=== PATIENT | female | born 1930 | race Caucasian/White ===

== ENCOUNTER 2017-09-13 01:28 | Emergency (ER) | payer MEDICARE, MEDICAID ==
[~2017-09-13] VITALS: Ht 152.4 cm; Wt 64.0 kg
[~2017-09-13 01:28] MED LIST: AMLO10TA80 PO; ASPI-986 PO; CLOP75TA16 PO; ENAL10TA PO; GEMF600T3 PO; LEVO500T2 PO; LEVO50TA8 PO; MULT1TAB63 PO; OMEP20CA10 PO; RANO500T3 PO; ROSU10TA PO
[2017-09-13] MEDS ORDERED: KETOROLAC 30MG/ML VIAL IV STA (03:51)
[2017-09-13 04:23] LABS: BASOPHILS % 0.7 % (0.0-2.0); EOSINOPHILS % 1.7 % (0.0-5.0); HEMATOCRIT. 36.1 % (36.0-48.0); LYMPHOCYTES % 35.7 % (20.0-50.0); MEAN CORPUSCULAR HEMOGLOBIN 30.3 pg (28.0-32.0); MEAN CORPUSCULAR VOLUME 91.6 fL (81.0-99.0); MEAN PLATELET VOLUME 7.7 fl (7.4-10.4); MONOCYTES % 7.4 % (2.0-8.0); NEUTROPHILS % 54.5 % (40.0-76.0); PLATELET 185 x1000/uL (130-400); RED BLOOD CELL COUNT 3.95 mill/uL (4.2-5.4); RED CELL DISTRIBUTION WIDTH 15.5 % (11.6-14.6)
[2017-09-13 04:33] LABS: CARBON DIOXIDE 27 mEq/L (21-32); CHLORIDE 101 mEq/L (98-107)
[2017-09-13 06:25] VITALS: BP 129/70
== END 2017-09-13 06:30 | disposition home or self-care (01) ==
LOC: ER 01:28
DX: M79.601 Pain in right arm (principal); E03.9 Hypothyroidism, unspecified; I10 Essential (primary) hypertension; E78.00 Pure hypercholesterolemia, unspecified; M19.90 Unspecified osteoarthritis, unspecified site; Z79.82 Long term (current) use of aspirin; Z95.1 Presence of aortocoronary bypass graft; Z79.899 Other long term (current) drug therapy
CPT/HCPCS: 36415; 73070; 80048; 85025; 96374; 99285; J1885

== ENCOUNTER 2017-11-24 09:16 | Inpatient (IN) | payer MEDICARE, MEDICAID ==
[~2017-11-24] VITALS: Ht 152.4 cm; Wt 51.8 kg
[2017-11-24] MEDS ORDERED: ONDANSETRON HCL 4MG/2ML VIAL IV STA (10:02)
[2017-11-24] MEDS ORDERED: IPRATROPIUM/ALBUTEROL 0.5-3(2.5)MG/3ML NEB HHN ONE (10:15)
[2017-11-24 10:33] LABS: BASOPHILS % 0.2 % (0.0-2.0); EOSINOPHILS % 0.5 % (0.0-5.0); HEMATOCRIT. 33.8 % (36.0-48.0); HEMOGLOBIN. 11.4 g/dL (12.0-16.0); LYMPHOCYTES % 9.9 % (20.0-50.0); MEAN CORPUSCULAR HEMOGLOBIN 30.3 pg (28.0-32.0); MEAN CORPUSCULAR VOLUME 89.6 fL (81.0-99.0); MEAN PLATELET VOLUME 7.1 fl (7.4-10.4); MONOCYTES % 3.2 % (2.0-8.0); NEUTROPHILS % 86.2 % (40.0-76.0); PLATELET 274 x1000/uL (130-400); RED BLOOD CELL COUNT 3.77 mill/uL (4.2-5.4); RED CELL DISTRIBUTION WIDTH 15.4 % (11.6-14.6)
[2017-11-24 10:35] LABS: BG BASE EXCESS -1.3 mmol/L (-2.0-2.0); BG CARBOXYHEMOGLOBIN 0.3 % (0.5-1.5); BG DEOXYHEMOGLOBIN 7.1 % (0.0-5.0); BG HCO3 ACT 21.4 mmol/L (22.0-26.0); BG OXYGEN SATURATION 92.9 % (92.0-98.5); BG OXYHEMOGLOBIN 92.6 % (94.0-97.0); BG PCO2 29.7 mmHg (35.0-45.0); BG PH 7.476 (7.350-7.450); BG PO2 60.7 mmHg (75.0-100.0); BG SAMPLE SITE LEFT RADIAL; BG TOTAL HEMOGLOBIN 11.7 g/dL (12.0-18.0); BG VENT MODE ROOM AIR
[2017-11-24 10:41] LABS: INR 1.1; PARTIAL THROMBOPLASTIN TIME 31.2 sec (23.4-31.0); PROTHROMBIN TIME 11.5 sec (9.4-11.6)
[2017-11-24 10:52] LABS: CHLORIDE 96 mEq/L (98-107); CREATINE KINASE 36 IU/L (26-192); TROPONIN I < 0.02 ng/mL (0.00-0.04)
[2017-11-24] MEDS ORDERED: CEFTRIAXONE 1 G PREMIX 50 ML IV ONE (13:15)
[2017-11-24] MEDS ORDERED: AZITHROMYCIN 500 MG in DEXT 5% WATER 250 ML IV SCH (13:15)
[2017-11-24] MEDS ORDERED: ONDANSETRON HCL 4MG/2ML VIAL IV PRN (16:15)
[2017-11-24] MEDS ORDERED: CLONIDINE 0.1MG TABLET PO PRN (16:15)
[2017-11-24] MEDS ORDERED: IPRATROPIUM/ALBUTEROL 0.5-3(2.5)MG/3ML NEB INH PRN (16:15)
[2017-11-24] MEDS ORDERED: LORAZEPAM 2MG/ML CPJ IV PRN (16:15)
[2017-11-24] MEDS ORDERED: MAGNESIUM/ALUMINUM HYDROXIDE/SIMETHICONE 30ML UDC PO PRN (16:15)
[2017-11-24] MEDS ORDERED: ACETAMINOPHEN 325MG TABLET PO PRN (16:15)
[2017-11-24] MEDS ORDERED: HYDROMORPHONE HCL/PF 2MG/ML CPJ IV PRN (17:00)
[2017-11-24 20:00] VITALS: BP 120/67
[2017-11-24 21:00] VITALS: BP 120/67
[2017-11-24] MEDS: ENOXAPARIN 30MG/0.3ML SYR SUBCUT SCH (21:54)
[2017-11-24] MEDS ORDERED: MECL-109 PO (22:20)
[2017-11-24] MEDS ORDERED: ASPI-1159 PO (22:20)
[2017-11-24] MEDS ORDERED: NITR0.4T49 SL (22:23)
[2017-11-24] MEDS ORDERED: AMLO10TA80 PO (22:26)
[2017-11-24] MEDS: GUAIFENESIN/CODEINE 100-10MG/5ML UDC PO PRN (22:49)
[2017-11-24] MEDS: SODIUM CHLORIDE 0.9% 1,000 ML IV SCH (22:49)
[2017-11-24 22:55] LABS: CLARITY URINE CLEAR (CLEAR); COLOR URINE YELLOW (YELLOW); KETONES URINE NEGATIVE (NEGATIVE); LEUKOCYTE ESTERASE URINE 2+ (NEGATIVE); NITRITE URINE POSITIVE (NEGATIVE); OCCULT BLOOD URINE NEGATIVE (NEGATIVE); PH URINE 6.5 (4.5-8.0); PROTEIN URINE NEGATIVE (NEGATIVE); SPECIFIC GRAVITY URINE 1.016 (1.005-1.030)
[2017-11-24 23:07] LABS: *AMPHETAMINES SCREEN URINE NEGATIVE (NEGATIVE); *BARBITURATES SCREEN URINE NEGATIVE (NEGATIVE); *BENZODIAZEPINES SCREEN URINE NEGATIVE (NEGATIVE); *COCAINE SCREEN URINE NEGATIVE (NEGATIVE); CANNABINOID URINE SCREEN NEGATIVE (NEGATIVE); METHADONE URINE SCREEN NEGATIVE (NEGATIVE); OPIATES URINE SCREEN NEGATIVE (NEGATIVE); PHENCYCLIDINE URINE SCREEN NEGATIVE (NEGATIVE)
[2017-11-24] MEDS ORDERED: POTASSIUM CHLORIDE INJ 40 MEQ in DEXT 5% WATER 250 ML IV NR (23:30)
[2017-11-25] VITALS: BP 110/45
[2017-11-25 04:00] VITALS: BP 132/63
[2017-11-25] MEDS: GUAIFENESIN/CODEINE 100-10MG/5ML UDC PO PRN ×3 (05:07→20:34)
[2017-11-25 07:11] LABS: BASOPHILS % 0.3 % (0.0-2.0); HEMATOCRIT. 30.2 % (36.0-48.0); HEMOGLOBIN. 10.3 g/dL (12.0-16.0); LYMPHOCYTES % 14.9 % (20.0-50.0); MEAN CORPUSCULAR HEMOGLOBIN 30.8 pg (28.0-32.0); MEAN CORPUSCULAR VOLUME 90.3 fL (81.0-99.0); MEAN PLATELET VOLUME 7.3 fl (7.4-10.4); MONOCYTES % 5.3 % (2.0-8.0); NEUTROPHILS % 77.5 % (40.0-76.0); PLATELET 252 x1000/uL (130-400); RED BLOOD CELL COUNT 3.34 mill/uL (4.2-5.4); RED CELL DISTRIBUTION WIDTH 15.5 % (11.6-14.6)
[2017-11-25 08:00] VITALS: BP 114/38
[2017-11-25 08:41] LABS: CHLORIDE 99 mEq/L (98-107); TROPONIN I < 0.02 ng/mL (0.00-0.04)
[2017-11-25] MEDS ORDERED: MECLIZINE 25MG TABLET PO PRN (09:15)
[2017-11-25] MEDS ORDERED: INFLUENZA VIRUS VACCINE 0.5ML SYR IM ONE (10:00)
[2017-11-25] MEDS ORDERED: PNEUMOCOCCAL 23-VAL P-SAC VAC 0.5 ML IM ONE (11:00)
[2017-11-25] MEDS ORDERED: CEFTRIAXONE 1,000 MG in DEXTROSE 5% WATER 50 ML IV SCH (11:15)
[2017-11-25 12:00] VITALS: BP 122/44
[2017-11-25 16:00] VITALS: BP 136/50
[2017-11-25] MEDS: SODIUM CHLORIDE 0.9% 1,000 ML IV SCH (16:30)
[2017-11-25] MEDS: CEFTRIAXONE 1 G PREMIX 50 ML IV SCH (16:31)
[2017-11-25] MEDS: AZITHROMYCIN 500 MG in DEXT 5% WATER 250 ML IV SCH (16:31)
[2017-11-25 20:00] VITALS: BP 114/57
[2017-11-25] MEDS: ENOXAPARIN 30MG/0.3ML SYR SUBCUT SCH (20:25)
[2017-11-26 00:05] VITALS: BP 105/54
[2017-11-26 04:00] VITALS: BP 126/55
[2017-11-26] MEDS: SODIUM CHLORIDE 0.9% 1,000 ML IV SCH (05:37)
[2017-11-26 07:19] LABS: BASOPHILS % 0.3 % (0.0-2.0); EOSINOPHILS % 1.3 % (0.0-5.0); HEMATOCRIT. 31.4 % (36.0-48.0); HEMOGLOBIN. 10.5 g/dL (12.0-16.0); LYMPHOCYTES % 17.8 % (20.0-50.0); MEAN CORPUSCULAR HEMOGLOBIN 30.6 pg (28.0-32.0); MEAN CORPUSCULAR VOLUME 91.3 fL (81.0-99.0); MEAN PLATELET VOLUME 7.2 fl (7.4-10.4); MONOCYTES % 5.7 % (2.0-8.0); NEUTROPHILS % 74.9 % (40.0-76.0); PLATELET 268 x1000/uL (130-400); RED BLOOD CELL COUNT 3.44 mill/uL (4.2-5.4); RED CELL DISTRIBUTION WIDTH 15.6 % (11.6-14.6)
[2017-11-26 08:00] VITALS: BP 113/41
[2017-11-26 08:05] LABS: CHLORIDE 100 mEq/L (98-107)
[2017-11-26 12:00] VITALS: BP 129/50
[2017-11-26] MEDS: AZITHROMYCIN 500 MG in DEXT 5% WATER 250 ML IV SCH (12:11)
[2017-11-26] MEDS: GUAIFENESIN/CODEINE 100-10MG/5ML UDC PO PRN (12:11)
[2017-11-26 16:00] VITALS: BP 133/50
[2017-11-26] MEDS ORDERED: FLUTICASONE/VILANTEROL 200-25 BLST.W.DEV ORI SCH (17:00)
[2017-11-26] MEDS: CEFTRIAXONE 1 G PREMIX 50 ML IV SCH (17:06)
[2017-11-26 20:00] VITALS: BP 142/52
[2017-11-26] MEDS ORDERED: BUDESONIDE 0.5MG/2ML NEB HHN SCH (21:00)
[2017-11-26] MEDS: ENOXAPARIN 30MG/0.3ML SYR SUBCUT SCH (21:27)
[2017-11-27] VITALS: BP 138/51
[2017-11-27] MEDS: ALBUTEROL (0.083%) 2.5MG/3ML NEB HHN SCH ×3 (02:11→14:24)
[2017-11-27 04:00] VITALS: BP 144/52
[2017-11-27] MEDS: GUAIFENESIN/CODEINE 100-10MG/5ML UDC PO PRN (06:19)
[2017-11-27 08:00] VITALS: BP 137/54
[2017-11-27 12:00] VITALS: BP 132/75
[2017-11-27] MEDS ORDERED: AZITHROMYCIN 500 MG in SODIUM CHLORIDE 0.9% 250 ML IV SCH (13:00)
[2017-11-27 14:36] VITALS: BP 132/75
[2017-11-28] MEDS ORDERED: AZITHROMYCIN 500 MG TABLET PO SCH (09:00)
== END 2017-11-27 15:36 | disposition home or self-care (01) | DRG 720 ==
LOC: ER 09:16 → 7WST 13:12 → EDBEDREQ 13:14 → ENRESERV 19:23
PROVIDERS: ADMIT Internal Medicine Nephrology; ATTEND Internal Medicine Nephrology
DX: A41.9 Sepsis, unspecified organism (principal); J96.00 Acute respiratory failure, unspecified whether with hypoxia or hypercapnia; E43 Unspecified severe protein-calorie malnutrition; J18.9 Pneumonia, unspecified organism; D63.8 Anemia in other chronic diseases classified elsewhere; I35.0 Nonrheumatic aortic (valve) stenosis; Z95.1 Presence of aortocoronary bypass graft; E87.1 Hypo-osmolality and hyponatremia; E87.6 Hypokalemia; E03.9 Hypothyroidism, unspecified; M19.90 Unspecified osteoarthritis, unspecified site; E78.5 Hyperlipidemia, unspecified; I10 Essential (primary) hypertension; I25.10 Atherosclerotic heart disease of native coronary artery without angina pectoris; Z77.22 Contact with and (suspected) exposure to environmental tobacco smoke (acute) (chronic); Z79.899 Other long term (current) drug therapy; I25.2 Old myocardial infarction; Z79.82 Long term (current) use of aspirin; Z68.22 Body mass index [BMI] 22.0-22.9, adult
CPT/HCPCS: 36415; 36600; 71045; 80048; 80053; 80305; 81001; 82375; 82550; 82805; 83605; 83690; 83880; 84443; 84484; 85025; 85610; 85730; 87040; 87086; 87804; 93005; 96365; 96366; 96368; 96375; 97116; 97162; 99285; J0456; J0696; J1650; J2405; J3480; J7030; J7050; J7060; J7611; J7620; J7626; J8597

== ENCOUNTER 2018-02-15 20:17 | Emergency (ER) | payer MEDICARE, MEDICAID ==
[~2018-02-15] VITALS: Ht 152.4 cm; Wt 53.0 kg
[~2018-02-15 20:17] MED LIST changes: +ASPI-1159 PO; -ASPI-986 PO; -GEMF600T3 PO; -LEVO50TA8 PO; +MECL-109 PO; -MULT1TAB63 PO; +NITR0.4T49 SL; -RANO500T3 PO
[2018-02-15 22:42] LABS: BASOPHILS % 0.8 % (0.0-2.0); EOSINOPHILS % 1.4 % (0.0-5.0); LYMPHOCYTES % 33.2 % (20.0-50.0); MEAN CORPUSCULAR HEMOGLOBIN 29.1 pg (28.0-32.0); MEAN CORPUSCULAR VOLUME 87.6 fL (81.0-99.0); MEAN PLATELET VOLUME 7.9 fl (7.4-10.4); MONOCYTES % 7.9 % (2.0-8.0); NEUTROPHILS % 56.7 % (40.0-76.0); PLATELET 212 x1000/uL (130-400); RED BLOOD CELL COUNT 4.11 mill/uL (4.2-5.4); RED CELL DISTRIBUTION WIDTH 15.8 % (11.6-14.6)
[2018-02-15 22:49] LABS: CHLORIDE 101 mEq/L (98-107)
[2018-02-15 22:52] LABS: PROTHROMBIN TIME 10.7 sec (9.4-11.6)
[2018-02-15 23:30] LABS: *AMPHETAMINES SCREEN URINE NEGATIVE (NEGATIVE); *BARBITURATES SCREEN URINE NEGATIVE (NEGATIVE)
[2018-02-15 23:31] LABS: *BENZODIAZEPINES SCREEN URINE NEGATIVE (NEGATIVE); *COCAINE SCREEN URINE NEGATIVE (NEGATIVE); CANNABINOID URINE SCREEN NEGATIVE (NEGATIVE); METHADONE URINE SCREEN NEGATIVE (NEGATIVE); OPIATES URINE SCREEN NEGATIVE (NEGATIVE); PHENCYCLIDINE URINE SCREEN NEGATIVE (NEGATIVE)
[2018-02-15 23:49] VITALS: BP 149/70
== END 2018-02-15 23:53 | disposition home or self-care (01) ==
LOC: ER 20:53
DX: M79.1 Myalgia (principal); R53.1 Weakness; R51 Headache; R07.9 Chest pain, unspecified; I25.10 Atherosclerotic heart disease of native coronary artery without angina pectoris; I10 Essential (primary) hypertension; E78.00 Pure hypercholesterolemia, unspecified; D64.9 Anemia, unspecified; Z95.1 Presence of aortocoronary bypass graft; Z79.82 Long term (current) use of aspirin; Z96.659 Presence of unspecified artificial knee joint
CPT/HCPCS: 36415; 71045; 80053; 80305; 83690; 83880; 84484; 85025; 85610; 93005; 99285

== ENCOUNTER 2019-10-31 12:00 | Inpatient (IN) | payer MEDICARE, OTHER ==
[~2019-10-31] VITALS: Ht 165.1 cm; Wt 39.9 kg
[~2019-10-31 12:00] MED LIST changes: -ASPI-1159 PO; +ASPI-1497 PO; -CLOP75TA16 PO; +CLOP75TA4 PO; +CRES10 PO; -MECL-109 PO; +MECL-159 PO; -OMEP20CA10 PO; +OMEP20CA14 PO; -ROSU10TA PO
[2019-10-31] MEDS ORDERED: ONDANSETRON HCL 4MG/2ML INJ IV STA (12:08)
[2019-10-31] MEDS ORDERED: FAMOTIDINE 20MG/2ML VIAL IV STA (12:08)
[2019-10-31] MEDS ORDERED: MORPHINE SULFATE 2 MG/ML CPJ (NOT FOR IM USE) IV ONE (13:00)
[2019-10-31 13:19] LABS: BASOPHILS % 0.1 % (0.0-2.0); HEMATOCRIT. 47.2 % (36.0-48.0); HEMOGLOBIN. 15.4 g/dL (12.0-16.0); LYMPHOCYTES % 11.6 % (20.0-50.0); MEAN CORPUSCULAR HEMOGLOBIN 30.3 pg (28.0-32.0); MEAN CORPUSCULAR VOLUME 92.7 fL (81.0-99.0); MEAN PLATELET VOLUME 8.8 fl (7.4-10.4); MONOCYTES % 6.8 % (2.0-8.0); NEUTROPHILS % 81.5 % (40.0-76.0); PLATELET 242 x1000/uL (130-400); RED BLOOD CELL COUNT 5.09 mill/uL (4.2-5.4); RED CELL DISTRIBUTION WIDTH 22.3 % (11.6-14.6)
[2019-10-31 13:23] LABS: CHLORIDE 99 mEq/L (98-107)
[2019-10-31 13:30] LABS: INR 1.3; PROTHROMBIN TIME 13.1 sec (9.6-11.0)
[2019-10-31] MEDS ORDERED: PIPERACILLIN/TAZ 3.375G PREMIX 50 ML IV ONE (13:30)
[2019-10-31] MEDS ORDERED: SODIUM CHLORIDE 0.9% 1000ML BAG (SEPSIS BOLUS) IV ONE (13:45)
[2019-10-31] MEDS ORDERED: FUROSEMIDE 20MG/2ML VIAL IVP ONE (14:00)
[2019-10-31 14:13] LABS: PLATELET ESTIMATE NORMAL
[2019-10-31 16:00] VITALS: BP 141/79
[2019-10-31] MEDS ORDERED: OLME40TA18 PO (16:59)
[2019-10-31] MEDS ORDERED: FAMO40TA7 MT (16:59)
[2019-10-31] MEDS ORDERED: TRAM50TA3 MT (16:59)
[2019-10-31] MEDS ORDERED: DOCU-138 MT (16:59)
[2019-10-31] MEDS ORDERED: AMLO5TAB88 PO (16:59)
[2019-10-31] MEDS ORDERED: MEGE400O5 MT (16:59)
[2019-10-31] MEDS ORDERED: B12/1TAB MT (16:59)
[2019-10-31] MEDS ORDERED: VIT1TABL86 MT (16:59)
[2019-10-31] MEDS ORDERED: HYOS-26 MT (16:59)
[2019-10-31] MEDS ORDERED: gaviscon (17:01)
[2019-10-31 17:11] VITALS: BP 141/79
[2019-10-31 20:00] VITALS: BP 128/81
[2019-10-31] MEDS: MORPHINE SULFATE 2 MG/ML CPJ (NOT FOR IM USE) IV PRN (21:30)
[2019-10-31] MEDS ORDERED: PIPERACILLIN/TAZ 3.375G PREMIX 50 ML IV SCH (22:00)
[2019-10-31] MEDS ORDERED: ENOXAPARIN 40MG/0.4ML SYR SUBCUT SCH (22:00)
[2019-10-31] MEDS ORDERED: IPRATROPIUM/ALBUTEROL 0.5-3(2.5)MG/3ML NEB HHN PRN (22:00)
[2019-10-31] MEDS ORDERED: ACETAMINOPHEN 325MG TABLET PO PRN (22:00)
[2019-10-31] MEDS ORDERED: MORPHINE SULFATE 2 MG/ML CPJ (NOT FOR IM USE) IV PRN (22:00)
[2019-10-31] MEDS ORDERED: SODIUM CHLORIDE 0.45% 1,000 ML IV SCH (23:00)
[2019-11-01] VITALS (11 sets, daily range): BP systolic 102–177; BP diastolic 30–76
[2019-11-01] MEDS: PIPERACILLIN/TAZOBACTAM 2.25 G in DEXTROSE 5% WATER 50 ML IV SCH ×4 (00:37→19:27)
[2019-11-01 06:19] LABS: HEMOGLOBIN. 13.3 g/dL (12.0-16.0); MEAN CORPUSCULAR HEMOGLOBIN 31.2 pg (28.0-32.0); MEAN CORPUSCULAR VOLUME 95.9 fL (81.0-99.0); MEAN PLATELET VOLUME 9.1 fl (7.4-10.4); PLATELET 185 x1000/uL (130-400); RED BLOOD CELL COUNT 4.27 mill/uL (4.2-5.4)
[2019-11-01 06:22] LABS: CHLORIDE 101 mEq/L (98-107)
[2019-11-01 06:30] LABS: LDL CHOLESTEROL 81 mg/dL (5-100)
[2019-11-01 06:31] LABS: CREATINE KINASE 219 IU/L (26-192)
[2019-11-01 06:32] LABS: HDL CHOLESTEROL 29 mg/dL (40-59); T4 FREE 0.58 ng/dL (0.76-1.46)
[2019-11-01] MEDS ORDERED: DEXTROSE 50% WATER 50ML SYRINGE IV NR ×2 (06:36→12:36)
[2019-11-01] MEDS ORDERED: DEXTROSE 50% WATER 50ML SYRINGE IV ONE (06:43)
[2019-11-01] MEDS ORDERED: SODIUM BICARBONATE 8.4% 1 MEQ/ML 50ML SYR IV NR ×2 (06:44→12:36)
[2019-11-01] MEDS ORDERED: DEXTROSE 50% WATER 50ML SYRINGE IV PRN (07:00)
[2019-11-01] MEDS ORDERED: VANCOMYCIN 1 G PREMIX 200 ML IV NR ×2 (08:30→16:00)
[2019-11-01] MEDS ORDERED: SODIUM BICARBONATE 100 MEQ in DEXT 5%/0.45% NACL 1000ML 1,000 ML IV SCH (08:30)
[2019-11-01] MEDS ORDERED: ENOXAPARIN 30MG/0.3ML SYR SUBCUT SCH (09:00)
[2019-11-01] MEDS: MORPHINE SULFATE 2 MG/ML CPJ (NOT FOR IM USE) IV PRN ×2 (10:02→23:07)
[2019-11-01] MEDS: ONDANSETRON HCL 4MG/2ML INJ IV PRN (10:31)
[2019-11-01] MEDS: BLOOD SUGAR DIAGNOSTIC STRIP TEST SCH ×4 (11:50→20:25)
[2019-11-01 12:07] LABS: BG BASE EXCESS -9.7 mmol/L (-2.0-2.0); BG CARBOXYHEMOGLOBIN 0.1 % (0.5-1.5); BG DEOXYHEMOGLOBIN 1.2 % (0.0-5.0); BG FRACTION INSPIRED OXYGEN 32; BG HCO3 ACT 16.4 mmol/L (22.0-26.0); BG METHEMOGLOBIN 0.3 % (0.0-1.5); BG OXYGEN SATURATION 98.8 % (92.0-98.5); BG OXYHEMOGLOBIN 98.4 % (94.0-97.0); BG PCO2 36.9 mmHg (35.0-45.0); BG PH 7.266 (7.350-7.450); BG PO2 162.9 mmHg (75.0-100.0); BG SAMPLE SITE RIGHT BRACHIAL; BG TOTAL HEMOGLOBIN 12.4 g/dL (12.0-18.0); BG VENT MODE NASAL CANNULA
[2019-11-01] MEDS ORDERED: LIDOCAINE HCL/PF 1% 2ML VIAL ONE (12:14)
[2019-11-01] MEDS ORDERED: SODIUM POLYSTYRENE SULFONATE 15 G/60 ML BOT PO NR (12:36)
[2019-11-01] MEDS ORDERED: IPRATROPIUM/ALBUTEROL 0.5-3(2.5)MG/3ML NEB HHN NR (12:37)
[2019-11-01] MEDS ORDERED: CALCIUM GLUCONATE 1,000 MG in DEXT 5% WATER 90 ML IV NR (12:45)
[2019-11-01] MEDS: INSULIN LISPRO 100 UNITS/ML SUBCUT SCH ×2 (18:02→20:25)
[2019-11-01 18:22] LABS: HEPATITIS B SURFACE ANTIGEN NEGATIVE
[2019-11-01 18:52] LABS: HEPATITIS A AB IGM NEGATIVE (NEGATIVE)
[2019-11-01] MEDS ORDERED: HYDRALAZINE 20MG/ML VIAL IV NR (20:00)
[2019-11-01] MEDS ORDERED: HYDRALAZINE 20MG/ML VIAL IV PRN (20:00)
[2019-11-01] MEDS: SODIUM CHLORIDE 0.9% 1,000 ML IV SCH (20:23)
[2019-11-02] VITALS (11 sets, daily range): BP systolic 96–167; BP diastolic 51–80
[2019-11-02] MEDS: DEXTROSE 50% WATER 50ML SYRINGE IV PRN ×4 (00:24→12:08)
[2019-11-02 01:49] LABS: BG BASE EXCESS -5.2 mmol/L (-2.0-2.0); BG CARBOXYHEMOGLOBIN 0.4 % (0.5-1.5); BG FRACTION INSPIRED OXYGEN 21; BG HCO3 ACT 19.8 mmol/L (22.0-26.0); BG METHEMOGLOBIN 0.2 % (0.0-1.5); BG OXYHEMOGLOBIN 97.4 % (94.0-97.0); BG PCO2 36.7 mmHg (35.0-45.0); BG PH 7.349 (7.350-7.450); BG PO2 120.8 mmHg (75.0-100.0); BG SAMPLE SITE LEFT RADIAL; BG VENT MODE ROOM AIR
[2019-11-02] MEDS: PIPERACILLIN/TAZOBACTAM 2.25 G in DEXTROSE 5% WATER 50 ML IV SCH ×2 (02:15→12:16)
[2019-11-02] MEDS: MORPHINE SULFATE 2 MG/ML CPJ (NOT FOR IM USE) IV PRN ×2 (04:24→12:09)
[2019-11-02] MEDS: BLOOD SUGAR DIAGNOSTIC STRIP TEST SCH ×2 (06:24→11:50)
[2019-11-02] MEDS ORDERED: DILTIAZEM HCL 5MG/ML 5ML VIAL IV NR (06:27)
[2019-11-02] MEDS: DILTIAZEM HCL 60MG TABLET PO SCH ×2 (08:47→12:00)
[2019-11-02] MEDS: INSULIN LISPRO 100 UNITS/ML SUBCUT SCH ×2 (09:03→12:09)
[2019-11-02] MEDS: SODIUM CHLORIDE 0.9% 1,000 ML IV SCH (09:05)
[2019-11-02] MEDS ORDERED: DILTIAZEM HCL 5MG/ML 5ML VIAL IV PRN (09:30)
[2019-11-02] MEDS ORDERED: VANCOMYCIN 500 MG PREMIX 100 ML IV SCH (10:00)
[2019-11-02 10:36] LABS: HEMATOCRIT. 43.2 % (36.0-48.0); HEMOGLOBIN. 13.7 g/dL (12.0-16.0); MEAN CORPUSCULAR HEMOGLOBIN 30.5 pg (28.0-32.0); PLATELET 99 x1000/uL (130-400); RED CELL DISTRIBUTION WIDTH 23.2 % (11.6-14.6)
[2019-11-02] MEDS: ONDANSETRON HCL 4MG/2ML INJ IV PRN ×2 (10:37→16:39)
[2019-11-02] MEDS: ENALAPRIL 1.25MG/ML VIAL 1ML IV SCH ×2 (12:16→18:00)
[2019-11-02 12:22] LABS: PLATELET ESTIMATE DECREASED
[2019-11-02 14:24] LABS: PLATELET ESTIMATE NORMAL
[2019-11-02] MEDS ORDERED: MORPHINE SULFATE 2 MG/ML CPJ (NOT FOR IM USE) IV PRN (16:45)
[2019-11-02] MEDS ORDERED: DIGOXIN 500MCG/2ML AMP IV SCH (18:00)
[2019-11-03] MEDS ORDERED: VANCOMYCIN 500 MG PREMIX 100 ML IV SCH (09:00)
== END 2019-11-02 18:40 | disposition expired | DRG 720 ==
LOC: ER 12:00 → 5WST 13:20 → EDBEDREQ 13:24 → ENRESERV 13:33 → 3WST 11-01 08:12
PROVIDERS: ADMIT Ophthalmology; ATTEND Ophthalmology
DX: A41.9 Sepsis, unspecified organism (principal); E43 Unspecified severe protein-calorie malnutrition; J84.9 Interstitial pulmonary disease, unspecified; E87.2 Acidosis; K80.21 Calculus of gallbladder without cholecystitis with obstruction; E87.5 Hyperkalemia; Z95.1 Presence of aortocoronary bypass graft; E87.1 Hypo-osmolality and hyponatremia; K80.51 Calculus of bile duct without cholangitis or cholecystitis with obstruction; R17 Unspecified jaundice; E03.9 Hypothyroidism, unspecified; E16.2 Hypoglycemia, unspecified; E78.00 Pure hypercholesterolemia, unspecified; E78.5 Hyperlipidemia, unspecified; G89.29 Other chronic pain; R10.9 Unspecified abdominal pain; I25.10 Atherosclerotic heart disease of native coronary artery without angina pectoris; I10 Essential (primary) hypertension; K21.9 Gastro-esophageal reflux disease without esophagitis; K82.8 Other specified diseases of gallbladder; M19.90 Unspecified osteoarthritis, unspecified site; Z51.5 Encounter for palliative care; Z66 Do not resuscitate; Z96.659 Presence of unspecified artificial knee joint; R74.0 Nonspecific elevation of levels of transaminase and lactic acid dehydrogenase [LDH]; K52.89 Other specified noninfective gastroenteritis and colitis; Z74.01 Bed confinement status; Z79.899 Other long term (current) drug therapy
CPT/HCPCS: 36415; 36600; 71045; 74176; 76705; 80048; 80053; 80061; 80076; 82375; 82378; 82550; 82805; 82962; 83605; 83880; 84439; 84443; 84484; 85025; 86301; 86705; 86709; 86803; 87340; 93005; 99291; J0360; J0610; J1650; J1815; J1940; J2270; J2405; J2543; J3370; J3490; J7030; J7060; A4315